=== PATIENT | female | born 1960 | race Caucasian/White ===

== ENCOUNTER → 2023-07-27 14:25 | Outpatient (REF) | payer OTHER, SELFPAY | LOC: WDC 14:25 | PROVIDERS: ATTENDING PHYSICIAN Obstetrics & Gynecology Gynecology; FAMILY PHYSICIAN Physician Assistant Medical | DX: Z12.31 Encounter for screening mammogram for malignant neoplasm of breast (principal); R92.8 Other abnormal and inconclusive findings on diagnostic imaging of breast | CPT/HCPCS: 76642; 77063; 77067 ==

== ENCOUNTER → 2024-07-25 13:32 | Outpatient (REF) | payer MEDICARE, OTHER, SELFPAY | LOC: WDC 13:32 | PROVIDERS: ATTENDING PHYSICIAN Obstetrics & Gynecology Gynecology; FAMILY PHYSICIAN Family Medicine | DX: Z12.31 Encounter for screening mammogram for malignant neoplasm of breast (principal); R92.8 Other abnormal and inconclusive findings on diagnostic imaging of breast | CPT/HCPCS: 73564; 76642; 77063; 77067 ==

== ENCOUNTER → 2024-08-06 15:18 | Outpatient (REF) | payer MEDICARE, OTHER, SELFPAY ==
[2024-08-06 17:29] LABS: Body Fluid Mononuclear 30.5 %; Body Fluid Polymorphonuclear 69.5 %; Body Fluid WBC 19580 /CUMM
[2024-08-06 17:39] LABS: Body Fluid Second Tech EYM
== END ==
LOC: CLAB 15:18
PROVIDERS: ATTENDING PHYSICIAN Physician Assistant Surgical
DX: M25.461 Effusion, right knee (principal); M25.561 Pain in right knee
CPT/HCPCS: 36415; 87070; 87075; 87205; 87476; 89051; 89060

== ENCOUNTER → 2024-08-08 14:31 | Outpatient (REF) | payer MEDICARE, OTHER, SELFPAY | LOC: PAVMRI 14:31 | PROVIDERS: ATTENDING PHYSICIAN Physician Assistant Surgical; FAMILY PHYSICIAN Physician Assistant Medical | DX: M25.461 Effusion, right knee (principal) | CPT/HCPCS: 73721 ==

== ENCOUNTER → 2024-08-15 13:14 | Outpatient (REF) | payer MEDICARE, OTHER, SELFPAY | LOC: REG 13:14 | PROVIDERS: ATTENDING PHYSICIAN Physician Assistant Surgical; FAMILY PHYSICIAN Family Medicine | DX: M25.461 Effusion, right knee (principal) | CPT/HCPCS: 36415; 86618 ==